=== PATIENT | male | born 1990 | race African-American/Black ===

== ENCOUNTER 2020-01-23 20:35 | Emergency (ER) | payer MEDICARE, MEDICAID ==
[~2020-01-23] VITALS: Ht 185.4 cm; Wt 84.0 kg
[2020-01-23] MEDS ORDERED: HYDROCODONE/ACETAMINOPHEN 5/325MG TABLET PO ONE (22:15)
[2020-01-23] MEDS ORDERED: LIDOCAINE HCL/EPINEPHRINE 1%-EPI 1:100,000 20 ML VIAL INFIL ONE (22:45)
[2020-01-24] MEDS ORDERED: TETANUS, DIPHTHERIA, PERTUSSIS VAC/PF 0.5ML (>7YR OLD) IM ONE (05:00)
[2020-01-24] MEDS ORDERED: CEFAZOLIN 1000MG PREMIX 50 ML IV ONE (05:00)
[2020-01-24 05:26] LABS: HEMATOCRIT 47.1 % (42.0-52.0); HEMOGLOBIN 15.6 g/dL (14.0-18.0); MEAN CORPUSCULAR HEMOGLOBIN 26.8 pg (28.0-32.0); MEAN CORPUSCULAR VOLUME 80.7 fL (80.0-94.0); PLATELET 244 x1000/uL (130-400); RED BLOOD CELL COUNT 5.83 mill/uL (4.7-6.1)
[2020-01-24 05:33] LABS: CHLORIDE 101 mEq/L (98-107)
[2020-01-24 05:36] LABS: ETHANOL BLOOD < 10 mg/dL
[2020-01-24 05:59] LABS: INR 0.9
[2020-01-24 09:00] VITALS: BP 113/74
== END 2020-01-24 09:05 | disposition short-term general hospital (02) ==
LOC: ER 20:35
DX: S02.69XB Fracture of mandible of other specified site, initial encounter for open fracture (principal); W22.8XXA Striking against or struck by other objects, initial encounter; Y93.89 Activity, other specified; Y92.89 Other specified places as the place of occurrence of the external cause; Y99.8 Other external cause status
CPT/HCPCS: 36415; 70450; 70486; 80048; 80320; 82962; 85027; 85610; 90471; 90715; 96365; 99285; J0690; J3490; G0480